=== PATIENT | female | born 1995 | race Caucasian/White ===

== ENCOUNTER 2025-07-19 18:49 | Emergency (ER) | payer OTHER ==
[2025-07-19 19:10] VITALS: BP 134/85; PULSE 97; RESP 18; TEMP 98.3; BMI 21.6
[2025-07-19 19:51] LABS: ABSOLUTE IMMATURE GRANULOCYTES 0.13 x10^3/uL (0.0-0.031); BASOPHILS # 0.05 x10^3/uL (0.01-0.08); EOSINOPHIL % 0.5 % (0.7-5.8); EOSINOPHILS # 0.08 x10^3/uL (0.04-0.36); MCHC 33.5 g/dl (32.2-35.5); MEAN CELL VOLUME 88.2 fl (79.4-94.8); MEAN PLT VOLUME 10.0 fl (9.4-12.3); MONOCYTE # 1.59 x10^3/uL (0.24-0.86); MONOCYTE % 10.2 % (4.7-12.5); RDW 11.9 % (12.1-16.5)
[2025-07-19 21:26] LABS: EPI CELLS 9 /uL (0-25.1); HYALINE CASTS 0 /uL (0-3.1); URINE APPEARANCE CLEAR; URINE BACTERIA 331 /uL (0-1359); URINE BILIRUBIN NEGATIVE (NEGATIVE); URINE COLOR YELLOW; URINE GLUCOSE (UA) NEGATIVE (NEGATIVE); URINE KETONE NEGATIVE (NEGATIVE); URINE LEUK ESTERASE NEGATIVE (NEGATIVE); URINE NITRITE NEGATIVE (NEGATIVE); URINE PROTEIN NEGATIVE (NEGATIVE); URINE RBC 16 /uL (0-23.9); URINE UROBILINOGEN 0.2 mg/dL (0.2-1.0); URINE WBC 5 /uL (0-25.8)
[2025-07-19 21:45] LABS: HIV INTERPRETATION NEGATIVE (NEGATIVE)
[2025-07-19 21:47] LABS: HCV DIAGNOSTIC IN-HOUSE W/RFLX NON-REACTIVE (NONREACTIVE)
[2025-07-19 23:11] LABS: GLUCOSE,RANDOM 95.0 mg/dL (74-106)
[2025-07-19 23:12] LABS: TOT PROT 7.4 g/dl (6.4-8.2)
[2025-07-19 23:13] LABS: CO2 18.0 mmol/L (21-32)
[2025-07-19 23:14] LABS: ALK PHOS 82.0 U/L (40-150)
[2025-07-19 23:17] LABS: CREATININE 0.44 mg/dL (0.55-1.3); SGOT/AST 26.0 U/L (5-34); SGPT/ALT 27.0 U/L (0-55)
== END 2025-07-19 22:01 | disposition home or self-care (01) ==
LOC: JER 18:49
DX: O26.851 Spotting complicating pregnancy, first trimester (principal); O26.891 Other specified pregnancy related conditions, first trimester; R10.2 Pelvic and perineal pain; Z3A.01 Less than 8 weeks gestation of pregnancy
CPT/HCPCS: 36415; 76817-TC; 80053; 81003; 84702; 85025; 86803; 86850; 86900; 86901; 87389; 99284-25